=== PATIENT | male | born 1950 | race African-American/Black ===

== ENCOUNTER 2018-11-04 04:54 | Emergency (ER) | payer MEDICARE, BC ==
[2018-11-04 05:04] VITALS: BP 170/92
--- NOTE | 2018-11-04 05:49 | ER Document Report ---
ED Medical Screen (RME) - General Chief Complaint: Constipation Stated Complaint: CONSTIPATION Time Seen by Provider: 11/04/18 05:45 Notes: Patient is a 68-year-old male who presents the emergency department with a chief complaint of constipation and groin pain. He also has abdominal pain. His last bowel movement was yesterday, but he states that he had a hard time passing a stool. He has been using a colon cleanser for the past 3 days, but has had no results. He states that he has been having this pain on and off since the middle of October. He states that he only had one bowel movement from October 14-. Ever since then he has not been able to have a normal bowel movement. He has history of a small bowel obstruction from 2013, and was admitted here in the hospital. He was placed on a liquid diet at that time and his small bowel obstruction was resolved. He had a follow-up colonoscopy and at that time in 2013, was normal. TRAVEL OUTSIDE OF THE [place] IN LAST 30 DAYS: No - Related Data Allergies/Adverse Reactions: No Known Allergies Allergy (Unverified 02/12/11 21:05) Past Medical History - Past Medical History Cardiac Medical History: Reports: Hx Hypercholesterolemia Denies: Hx Coronary Artery Disease, Hx Heart Attack, Hx Hypertension Pulmonary Medical History: Denies: Hx Asthma, Hx Bronchitis, Hx COPD, Hx Pneumonia Neurological Medical History: Denies: Hx Cerebrovascular Accident, Hx Seizures Renal/ Medical History: Denies: Hx Peritoneal Dialysis Malignancy Medical History: Reports Hx Prostate Cancer GI Medical History: Reports: Hx Gastroesophageal Reflux Disease Musculoskeltal Medical History: Reports Hx Arthritis - generalized Psychiatric Medical History: Reports: Hx Depression Past Surgical History: Reports: Hx Orthopedic Surgery - spinal 2010 - Immunizations Hx Diphtheria, Pertussis, Tetanus Vaccination: Yes Physical Exam - Vital signs Vitals: Temp Pulse Resp BP Pulse Ox 97.5 F 59 L 16 170/92 H 97 11/04/18 05:03 11/04/18 05:03 11/04/18 05:03 11/04/18 05:03 11/04/18 05:03 - Abdominal Inspection: Normal Tenderness: Tender - Generalized Course - Vital Signs Vital signs: Temp Pulse Resp BP Pulse Ox 97.5 F 59 L 16 170/92 H 97 11/04/18 05:03 11/04/18 05:03 11/04/18 05:03 11/04/18 05:03 11/04/18 05:03
[2018-11-04 06:10] LABS: ABSOLUTE EOSINOPHILS # (AUTO) 0.1 10^3/uL (0.0-0.6); ABSOLUTE LYMPHOCYTES (AUTO) 1.2 10^3/uL (0.5-4.7); ABSOLUTE MONOCYTES (AUTO) 0.6 10^3/uL (0.1-1.4); ABSOLUTE NEUT (AUTO) 2.7 10^3/uL (1.7-8.2); BASOPHILS % (AUTO) 0.6 % (0-2); EOSINOPHILS % (AUTO) 1.7 % (0-6); HEMATOCRIT 40.3 % (37.9-51.0); HEMOGLOBIN 13.9 g/dL (13.5-17.0); LYMPHOCYTES % (AUTO) 26.5 % (13-45); MEAN CORPUSCULAR HEMOGLOBIN 31.4 pg (27.0-33.4); MEAN CORPUSCULAR HGB CONC 34.6 g/dL (32.0-36.0); MEAN CORPUSCULAR VOLUME 91 fl (80-97); MONOCYTES % (AUTO) 12.9 % (3-13); PLATELET COUNT 235 10^3/uL (150-450); RED BLOOD COUNT 4.43 10^6/uL (4.35-5.55); RED CELL DISTRIBUTION WIDTH 14.4 % (11.5-14.0); SEGMENTED NEUTROPHILS % (AUTO) 58.3 % (42-78); TOTAL CELLS COUNTED % (AUTO) 100 %; WHITE BLOOD COUNT 4.6 10^3/uL (4.0-10.5)
[2018-11-04 06:16] LABS: BLOOD UREA NITROGEN 18 mg/dL (7-20); CALCIUM 9.2 mg/dL (8.4-10.2); CARBON DIOXIDE 25 mmol/L (22-30); CHLORIDE 102 mmol/L (98-107); GLUCOSE 103 mg/dL (75-110); POTASSIUM 3.9 mmol/L (3.6-5.0); SODIUM 137.2 mmol/L (137-145)
[2018-11-04 06:17] LABS: ALANINE AMINOTRANSFERASE 41 U/L (21-72); ALBUMIN 3.8 g/dL (3.5-5.0); ALKALINE PHOSPHATASE 76 U/L (38-126); ANION GAP 10 (5-19); ASPARTATE AMINO TRANSFERASE 35 U/L (17-59); BILIRUBIN,DIRECT 0.2 mg/dL (0.0-0.4); BILIRUBIN,TOTAL 0.3 mg/dL (0.2-1.3); TOTAL PROTEIN 6.1 g/dL (6.3-8.2)
[2018-11-04] MEDS ORDERED: NORMAL SALINE 500 ML IV ONE (06:34)
[2018-11-04 07:19] LABS: APPEARANCE,URINE CLEAR; BILIRUBIN,URINE NEGATIVE (NEGATIVE); COLOR,URINE COLORLESS; GLUCOSE, URINE NEGATIVE (NEGATIVE); KETONES,URINE NEGATIVE (NEGATIVE); LEUKOCYTE ESTERASE,URINE NEGATIVE (NEGATIVE); NITRITE,URINE NEGATIVE (NEGATIVE); PROTEIN,URINE NEGATIVE (NEGATIVE); URINE SPECIFIC GRAVITY 1.003; UROBILINOGEN,URINE NEGATIVE mg/dL (<2.0)
--- NOTE | 2018-11-04 08:36 | RADIOLOGY REPORT (SQ) ---
EXAM DESCRIPTION: CT ABD/PELVIS WITH IV ORAL COMPLETED DATE/TIME: 11/04/2018 8:16 am REASON FOR STUDY: abdominal pain; constipation COMPARISON: 06/30/2015 TECHNIQUE: CT scan of the abdomen and pelvis performed using helical scanning technique with dynamic intravenous contrast injection. No oral contrast. Images reviewed with lung, soft tissue, and bone windows. Reconstructed coronal and sagittal MPR images reviewed. Delayed images for evaluation of the urinary system also acquired. All images stored on PACS. All CT scanners at this facility use dose modulation, iterative reconstruction, and/or weight based d osing when appropriate to reduce radiation dose to as low as reasonably achievable (ALARA). [facility]: Dose Right [facility]: CareDose [facility]: Dose Right [facility]: Teradose 4D [facility]: [employer] Software CONTRAST TYPE AND DOSE: contrast/concentration: Isovue 350.00 mg/ml; Total Contrast Delivered: 100.0 ml; Total Saline Delivered: 72.0 ml 100 cc Omnipaque 350 RENAL FUNCTION: BUN 18, creatinine 1.08 RADIATION DOSE: CT Rad equipment meets quality standard of care and radiation dose reduction techniq ues were employed. CTDIvol: 9.6 - 13.6 mGy. DLP: 1273 mGy-cm.. LIMITATIONS: None. FINDINGS: LOWER CHEST: No significant findings. No nodules or infiltrates. LIVER: There is a 1.8 cm hepatic dome lesion demonstrating peripheral nodular discontinuous enhanceme nt with centripetal filling most compatible with a hemangioma. Remaining liver parenchyma is unremar kable. No intrahepatic ductal dilation. SPLEEN: Normal size. No focal lesions. PANCREAS: No masses. No significant calcifications. No adjacent inflammation or peripancreatic fluid collections. Pancreatic duct not dilated. GALLBLADDER: No identified stones by CT criteria. No inflammatory changes to suggest cholecystitis. ADRENAL GLANDS: Nodular adrenal gland thickening without discrete mass. RIGHT KIDNEY AND URETER: No solid masses. No significant calcifications. No hydronephrosis or hyd roureter. LEFT KIDNEY AND URETER: No solid masses. No significant calcifications. No hydronephrosis or hydr oureter. AORTA AND VESSELS: Scattered aortoiliac atherosclerosis. No aneurysm. 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 RETROPERITONEUM: No retroperitoneal adenopathy, hemorrhage or masses. BOWEL AND PERITONEAL CAVITY: No evidence of intestinal obstruction. No focal bowel wall thickening. APPENDIX: Normal. PELVIS: Status post prostatectomy. Unremarkable urinary bladder. ABDOMINAL WALL: Intramuscular lipoma within the right lateral abdominal wall musculature measuring 5 cm maximally. BONES: Stable benign-appearing lytic lesion within the left ilium with narrow zone of transition comp ared to exam dated 06/27/2015 OTHER: No other significant finding. IMPRESSION: 1. No definite acute intra-abdominal/pelvic process. 2. Stable 1.8 cm hepatic dome lesion most compatible with hemangioma. 3. 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 4. No evidence of intestinal obstruction. Unremarkable fecal burden. TECHNICAL DOCUMENTATION: JOB ID: [id number] Quality ID # [id number]: Final reports with documentation of one or more dose reduction techniques (e.g., Au tomated exposure control, adjustment of the mA and/or kV according to patient size, use of iterative reconstruction technique) 2010 [employer]- All Rights Reserved Reading location - IP/workstation name: [email or web address]
--- NOTE | 2018-11-04 09:34 | ER Document Report ---
ED General - General Chief Complaint: Constipation Stated Complaint: CONSTIPATION Time Seen by Provider: 11/04/18 05:45 TRAVEL OUTSIDE OF THE U.S[place] IN LAST 30 DAYS: No - HPI Patient complains to provider of: Constipation abdominal pain Notes: Patient coming in for evaluation of constipation abdominal pain. Patient has abdominal pain mid abdomen going to bilateral groins. Patient states ongoing ever since Ayaka soria. Patient states similar to when he had constipation issues in the past. Patient was evaluated by our triage provider whose note is provided below Patient is a 68-year-old male who presents the emergency department with a chief complaint of constipation and groin pain. He also has abdominal pain. His last bowel movement was yesterday, but he states that he had a hard time passing a stool. He has been using a colon cleanser for the past 3 days, but has had no results. He states that he has been having this pain on and off since the middle of October. He states that he only had one bowel movement from October 14-. Ever since then he has not been able to have a normal bowel movement. He has history of a small bowel obstruction from 2013, and was admitted here in the hospital. He was placed on a liquid diet at that time and his small bowel obstruction was resolved. He had a follow-up colonoscopy and at that time in 2013, was normal. Patient upon my evaluation is resting comfortably no signs of any obvious distress. - Related Data Allergies/Adverse Reactions: No Known Allergies Allergy (Unverified 02/12/11 21:05) Past Medical History - Social History Smoking Status: Never Smoker Family History: None Patient has suicidal ideation: No Patient has homicidal ideation: No - Past Medical History Cardiac Medical History: Reports: Hx Hypercholesterolemia Denies: Hx Coronary Artery Disease, Hx Heart Attack, Hx Hypertension Pulmonary Medical History: Denies: Hx Asthma, Hx Bronchitis, Hx COPD, Hx Pneumonia Neurological Medical History: Denies: Hx Cerebrovascular Accident, Hx Seizures Renal/ Medical History: Denies: Hx Peritoneal Dialysis Malignancy Medical History: Reports Hx Prostate Cancer GI Medical History: Reports: Hx Gastroesophageal Reflux Disease Musculoskeletal Medical History: Reports Hx Arthritis - generalized Psychiatric Medical History: Reports: Hx Depression Past Surgical History: Reports: Hx Orthopedic Surgery - spinal 2010 - Immunizations Hx Diphtheria, Pertussis, Tetanus Vaccination: Yes Hx Pneumococcal Vaccination: 11/01/13 Review of Systems - Review of Systems Constitutional: No symptoms reported EENT: No symptoms reported Cardiovascular: No symptoms reported Respiratory: No symptoms reported Gastrointestinal: Abdominal pain, Constipation Genitourinary: No symptoms reported Male Genitourinary: No symptoms reported Musculoskeletal: No symptoms reported Skin: No symptoms reported Hematologic/Lymphatic: No symptoms reported Neurological/Psychological: No symptoms reported -: Yes All other systems reviewed and negative Physical Exam - Vital signs Vitals: Temp Pulse Resp BP Pulse Ox 97.5 F 59 L 16 170/92 H 97 11/04/18 05:03 11/04/18 05:03 11/04/18 05:03 11/04/18 05:03 11/04/18 05:03 Interpretation: Normal - General General appearance: Appears well, Alert - HEENT Head: Normocephalic, Atraumatic Eyes: Normal Pupils: PERRL - Respiratory Respiratory status: No respiratory distress Chest status: Nontender Breath sounds: Normal Chest palpation: Normal - Cardiovascular Rhythm: Regular Heart sounds: Normal auscultation Murmur: No - Abdominal Inspection: Normal Distension: No distension Bowel sounds: Normal Tenderness: Nontender Organomegaly: No organomegaly - Back Back: Normal, Nontender - Extremities General upper extremity: Normal inspection, Nontender, Normal color, Normal ROM, Normal temperature General lower extremity: Normal inspection, Nontender, Normal color, Normal ROM, Normal temperature, Normal weight bearing. 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 I did contact the ra diologist that read the CT scan stating that this was present and a CAT scan of the abdomen in 2015 that is very small and slight however that there is no changes today from the CAT scan in 2015. Patient states no one has told him of this diagnosis in the past. I was able to pass the images along to the cardiothoracic vascular surgeons at [facility] and was able to speak with them on the phone. States that the flap was present 2014 and does look to be stable at this time no surgical or emergent treatment required recommended to follow in approximate 6 months to a year with vascular team patient was given Dr. Mckeon vascular surgeon at [facility]. To follow-up with Patient otherwise has had multiple bowel movements while here in the ER. We will give Bentyl for his abdominal pain. No critical pathology seen on his evaluation. Recommend stool softeners to help relieve his constipation. Patient was discharged home. - Vital Signs Vital signs: Temp Pulse Resp BP Pulse Ox 97.5 F 59 L 16 170/92 H 97 11/04/18 05:03 11/04/18 05:03 11/04/18 05:03 11/04/18 05:03 11/04/18 05:03 - Laboratory Result Diagrams: 11/04/18 05:50 11/04/18 05:50 Laboratory results interpreted by me: 11/04/18 11/04/18 05:50 05:50 RDW 14.4 H Total Protein 6.1 L Discharge - Discharge Clinical Impression: Aortic flap at the SMA Abdominal pain Qualifiers: Abdominal location: generalized Qualified Code(s): R10.84 - Generalized abdominal pain Condition: Good Disposition: HOME, SELF-CARE Instructions: Abdominal Pain ([facility]), Constipation ([facility]) Additional Instructions: Your CAT scan showed a small aortic flap that was also demonstrated on a CT scan in 2014. I discussed his case with the cardiothoracic vascular surgery team at [facility]. They were able to look at your CT scan from today and from 2014 showing no change. The recommendation at this time is for continued surveillance follow-up with a vascular surgeon in approximately 6 months to 1 year. You may follow-up with your primary care physician for referral to a vascular surgeon he may follow-up with Dr. Mckeon vascular surgeon non destructive testing technician for [facility]. Your CAT scan does show a mild amount of stool throughout the colon however no signs of a small bowel obstruction I would recommend she follow-up with your primary care physician recommend taking a stool softener I would recommend returning to the ER if your symptoms worsen we will give you medication called Bentyl for your pain. Dr. Bruno Mckeon MD Doctor in [place], [place] Address: [address] [place] [address], [place] [address] Prescriptions: Dicyclomine HCl [Bentyl 20 mg Tablet] 20 mg PO QID #30 tablet Ondansetron [Zofran Odt 4 mg Tablet] 1 - 2 tab PO Q4H PRN #15 tab.rapdis PRN Reason: For Nausea/Vomiting Forms: Return to Work
[2018-11-04] MEDS ORDERED: DICYCLOMINE HCL 20 MG TABLET PO ONE (12:07)
== END 2018-11-04 12:31 | disposition home or self-care (01) ==
LOC: ER 04:54
DX: I71.02 Dissection of abdominal aorta (principal); K59.00 Constipation, unspecified; R10.84 Generalized abdominal pain; Z87.19 Personal history of other diseases of the digestive system; Z85.46 Personal history of malignant neoplasm of prostate
CPT/HCPCS: 99284; 96360; 36415; 85025; 80053; 81001; 74177; A9270; J7040; J3490

== ENCOUNTER → 2019-10-31 | Outpatient (CLI) | payer OTHER ==
--- NOTE | 2019-10-31 13:17 | RADIOLOGY REPORT (SQ) ---
EXAM DESCRIPTION: MRI LUMBAR SPINE WITHOUT COMPLETED DATE/TIME: 10/31/2019 1:01 pm REASON FOR STUDY: M25.551 PAIN IN RIGHT HIP, M54.5 LOW BACK PAIN M25.551 PAIN IN RIGHT HIP M54.5 L OW BACK PAIN COMPARISON: 11/04/2018 CT TECHNIQUE: Sagittal and Axial imaging includes T1, T2, STIR and gradient echo sequences. Coronal T2/ HASTE imaging. LIMITATIONS: None. FINDINGS: VISUALIZED UPPER ABDOMEN: Limited evaluation. No acute or suspicious findings suggested. SEGMENTATION: No transitional anatomy. The lowest well-developed disc space is labeled L5-S1. ALIGNMENT: Straightening of the normal lumbar lordosis, stable. VERTEBRAE: Intact. BONE MARROW: Normal. No marrow replacement or reactive changes. DISC SIGNAL: There is disc desiccation from L2-S1. POSTERIOR ELEMENTS: Generally intact. No pars defect evident. HARDWARE: None in the spine. CORD AND CONUS: Normal in size and signal intensity. Conus terminates at T12-L1. SOFT TISSUES: No aortic aneurysm seen. No bulky retroperitoneal adenopathy or mass. No paraspinal mas s or fluid. L1-L2: No significant spinal stenosis or exit foraminal stenosis. L2-L3: Small circumferential disc bulge causing mild effacement of the spinal canal and lateral reces ses bilaterally. No high-grade spinal canal stenosis. Mild bilateral neural foraminal narrowing. L3-L4: Broad-based circumferential disc bulge and ligamentum flavum hypertrophy causing moderate to s evere spinal canal stenosis. There is narrowing of the lateral recesses with contact of the traversi ng nerve roots. There is moderate bilateral neural foraminal narrowing L4-L5: Large circumferential disc bulging with facet and ligamentum flavum hypertrophy resulting in s evere spinal canal stenosis and effacement of the CSF column entirely. There is contact of the trave rsing nerve roots. Moderate left and moderate to severe right neural foraminal narrowing secondary t o disc and facet disease. L5-S1: Small posterior disc without significant spinal canal stenosis. Mild bilateral neural foramin al narrowing secondary to disc facet disease. LOWER THORACIC: Incompletely imaged. No stenosis seen. SACRUM: Visualized upper sacrum intact. OTHER: No other significant findings. IMPRESSION: 1. No evidence of acute bony abnormality of the lumbar spine. 2. Multilevel degenerative changes within the lumbar spine. Most significant changes at the level o f L4-5 with large posterior disc and facet hypertrophy resulting in severe spinal canal stenosis and moderate to severe bilateral neural foraminal narrowing. 3. Additional level specific findings as above. TECHNICAL DOCUMENTATION: JOB ID: [id number] [employer]- All Rights Reserved Reading location - IP/workstation name: [email or web address]
== END ==
LOC: RAD 11:56
PROVIDERS: ATTEND Physician Assistant Medical
DX: M25.551 Pain in right hip (principal); M54.5 Low back pain; M51.86 Other intervertebral disc disorders, lumbar region
CPT/HCPCS: 72148

== ENCOUNTER 2020-04-09 11:16 | Emergency (ER) | payer OTHER, MEDICARE ==
[2020-04-09 12:39] LABS: ABSOLUTE LYMPHOCYTES (AUTO) 1.3 10^3/uL (0.5-4.7); ABSOLUTE MONOCYTES (AUTO) 0.8 10^3/uL (0.1-1.4); ABSOLUTE NEUT (AUTO) 5.1 10^3/uL (1.7-8.2); BASOPHILS % (AUTO) 0.4 % (0-2); EOSINOPHILS % (AUTO) 0.6 % (0-6); HEMATOCRIT 43.8 % (37.9-51.0); HEMOGLOBIN 15.1 g/dL (13.5-17.0); LYMPHOCYTES % (AUTO) 17.7 % (13-45); MEAN CORPUSCULAR HEMOGLOBIN 31.5 pg (27.0-33.4); MEAN CORPUSCULAR HGB CONC 34.5 g/dL (32.0-36.0); MEAN CORPUSCULAR VOLUME 92 fl (80-97); MONOCYTES % (AUTO) 11.3 % (3-13); PLATELET COUNT 336 10^3/uL (150-450); RED BLOOD COUNT 4.79 10^6/uL (4.35-5.55); RED CELL DISTRIBUTION WIDTH 14.5 % (11.5-14.0); TOTAL CELLS COUNTED % (AUTO) 100 %; WHITE BLOOD COUNT 7.3 10^3/uL (4.0-10.5)
[2020-04-09 12:59] LABS: ALBUMIN 4.4 g/dL (3.5-5.0); ALKALINE PHOSPHATASE 70 U/L (38-126); ANION GAP 7 (5-19); ASPARTATE AMINO TRANSFERASE 45 U/L (17-59); BILIRUBIN,TOTAL 0.4 mg/dL (0.2-1.3); BLOOD UREA NITROGEN 19 mg/dL (7-20); CALCIUM 10.2 mg/dL (8.4-10.2); CARBON DIOXIDE 26 mmol/L (22-30); CHLORIDE 103 mmol/L (98-107); GLUCOSE 92 mg/dL (75-110); POTASSIUM 4.5 mmol/L (3.6-5.0); TOTAL PROTEIN 7.3 g/dL (6.3-8.2)
--- NOTE | 2020-04-09 13:05 | ER Document Report ---
ED General - General Chief Complaint: Leg Swelling Stated Complaint: LEFT LEG/HI PAIN, SWELLING Time Seen by Provider: 04/09/20 12:24 Primary Care Provider: MARY STEPHENS PA [NO LOCAL MD] - Follow up as needed Mode of Arrival: Ambulatory Information source: Patient TRAVEL OUTSIDE OF THE [place] IN LAST 30 DAYS: No - HPI Onset: Other - since his back surgery on April 03 Onset/Duration: Gradual Quality of pain: Achy Severity: Moderate Pain Level: 3 Associated symptoms: None Exacerbated by: Walking, Other - weight bearing Relieved by: Denies Similar symptoms previously: No Recently seen / treated by doctor: No Notes: 69 year old male with a history of Recent Lumbar Spine Surgery on April 03, HLD, GERD, Arthritis, Prostate Cancer, Depression here in the ER for pain in his low back which radiates down his left leg. The patient says he called his Orthopedic Surgeon and he was told to come to an ER to be evaluated for a DVT. The patient denies redness or swelling of his left leg since the surgery. The patient is also complaining of a scratchy throat (he is unsure if he was intubated or not) and left sided chest pain since his surgery. The patient denies fevers, chills, sweats, nausea, vomiting, trouble breathing, shortness of breath. - Related Data Allergies/Adverse Reactions: No Known Allergies Allergy (Unverified 02/12/11 21:05) Past Medical History - General Information source: Patient - Social History Smoking Status: Current Every Day Smoker Chew tobacco use (# tins/day): No Frequency of alcohol use: None Drug Abuse: None Family History: None Patient has suicidal ideation: No Patient has homicidal ideation: No - Past Medical History Cardiac Medical History: Reports: Hx Hypercholesterolemia Denies: Hx Coronary Artery Disease, Hx Heart Attack, Hx Hypertension Pulmonary Medical History: Denies: Hx Asthma, Hx Bronchitis, Hx COPD, Hx Pneumonia Neurological Medical History: Denies: Hx Cerebrovascular Accident, Hx Seizures Renal/ Medical History: Denies: Hx Peritoneal Dialysis Malignancy Medical History: Reports Hx Prostate Cancer GI Medical History: Reports: Hx Gastroesophageal Reflux Disease Musculoskeletal Medical History: Reports Hx Arthritis - generalized Psychiatric Medical History: Reports: Hx Depression Past Surgical History: Reports: Hx Orthopedic Surgery - spinal 2010 - Immunizations Hx Diphtheria, Pertussis, Tetanus Vaccination: Yes Hx Pneumococcal Vaccination: 11/01/13 Review of Systems - Review of Systems Constitutional: No symptoms reported EENT: Throat pain Cardiovascular: Chest pain - left sided chest wall Respiratory: No symptoms reported Gastrointestinal: No symptoms reported Genitourinary: No symptoms reported Male Genitourinary: No symptoms reported Musculoskeletal: Other - left low back pain which radiates down the back of his left leg Skin: No symptoms reported Hematologic/Lymphatic: No symptoms reported Neurological/Psychological: Other - numbness in his left low back which radiates down his left leg -: Yes All other systems reviewed and negative Physical Exam - Vital signs Vitals: Temp Pulse Resp BP Pulse Ox 97.7 F 101 H 16 154/86 H 96 04/09/20 11:20 04/09/20 11:20 04/09/20 11:20 04/09/20 11:20 04/09/20 11:20 - Notes Notes: GENERAL: Well-appearing, well-nourished and in no acute distress. HEAD: Atraumatic, normocephalic. EYES: Pupils equal round and reactive to light, extraocular movements intact, sclera anicteric, conjunctiva are normal. ENT: External ears normal, nares patent, oropharynx clear without exudates. [address] mucous membranes. NECK: Normal range of motion, supple without lymphadenopathy or JVD. LUNGS: Breath sounds clear to auscultation bilaterally and equal. No wheezes rales or rhonchi. HEART: Regular rate and rhythm without murmurs, rubs or gallops. ABDOMEN: Soft, nontender, normoactive bowel sounds. No guarding, no rebound. No masses appreciated. EXTREMITIES: Normal range of motion, no pitting or edema. No clubbing or cyanosis. No erythema or warmth of his left leg. No calf tenderness on left side. BACK: Well healing surgical incision with no erythema, warmth, drainage. Mild lumbar tenderness to palpation. Pain in left low back made worse with weight bearing on left leg, movement of left leg, and weight bearing of left leg. NEUROLOGICAL: Cranial nerves II through XII grossly intact. Normal speech, normal gait. PSYCH: Normal mood, normal affect. SKIN: Warm, Dry, normal turgor, no rashes or lesions noted. Course - Re-evaluation Re-evalutation: 04/09/20 14:44 The patient is here in the ER for back pain which radiates down his left leg along with some mild left sided chest pain (made worse with palpation). The patient was told to come the ER to be evaluated for a DVT. US shows no DVT and chest xray shows no acute process. Patient is safe for outpatient follow up with his Spine Surgeon. Patient told to use Tylenol and Motrin for pain along with a heating pad. - Vital Signs Vital signs: Temp Pulse Resp BP Pulse Ox 97.7 F 101 H 16 154/86 H 96 04/09/20 12:15 04/09/20 11:20 04/09/20 11:20 04/09/20 11:20 04/09/20 11:20 - Laboratory Result Diagrams: 04/09/20 12:30 04/09/20 12:30 Laboratory results interpreted by me: 04/09/20 04/09/20 12:30 12:30 RDW 14.5 H Sodium 136.3 L Lipase 646.5 H - Diagnostic Test Radiology reviewed: Image reviewed, Reports reviewed Discharge - Discharge Clinical Impression: Back pain Qualifiers: Back pain location: low back pain Chronicity: unspecified Back pain laterality: midline Sciatica presence: with sciatica Sciatica laterality: sciatica of left side Qualified Code(s): M54.42 - Lumbago with sciatica, left side Condition: Stable Disposition: HOME, SELF-CARE Instructions: Low Back Pain ([facility]), Sciatica ([facility]) Additional Instructions: USe Tylenol and Motrin for pain. Follow up with your Spine Surgeon as soon as possible and tell him/her about your ER visit. You had an ultrasound of your left leg showing no signs of a blood clot. You also had a chest xray which was normal in appearance. Referrals: MARY STEPHENS PA [NO LOCAL MD] - Follow up as needed
--- NOTE | 2020-04-09 14:17 | RADIOLOGY REPORT (SQ) ---
EXAM DESCRIPTION: CHEST 2 VIEWS IMAGES COMPLETED DATE/TIME: 04/09/2020 1:44 pm REASON FOR STUDY: eval for SOB and left sided chest pain COMPARISON: 06/28/2015 EXAM PARAMETERS: NUMBER OF VIEWS: two views TECHNIQUE: Digital Frontal and Lateral radiographic views of the chest acquired. RADIATION DOSE: NA LIMITATIONS: none FINDINGS: LUNGS AND PLEURA: No opacities, masses or pneumothorax. No pleural effusion. MEDIASTINUM AND HILAR STRUCTURES: No masses or contour abnormalities. HEART AND VASCULAR STRUCTURES: Heart normal size. No evidence for failure. BONES: No acute findings. HARDWARE: None in the chest. OTHER: No other significant finding. IMPRESSION: NO ACUTE RADIOGRAPHIC FINDING IN THE CHEST. TECHNICAL DOCUMENTATION: JOB ID: [id number] 2010 [employer]- All Rights Reserved Reading location - IP/workstation name: [email or web address]
[2020-04-09 15:09] VITALS: BP 139/90
--- NOTE | 2020-04-09 15:42 | RADIOLOGY REPORT (SQ) ---
EXAM DESCRIPTION: VENOUS UNILATERAL LOWER IMAGES COMPLETED DATE/TIME: 04/09/2020 3:24 pm REASON FOR STUDY: Pain swelling recent back surgery COMPARISON: None. TECHNIQUE: Dynamic and static tipton scale and color images acquired of the left leg venous system. Se lected spectral images acquired with additional compression and augmentation maneuvers. The contralat eral common femoral vein and saphenofemoral junction were also imaged. Images stored on PACS. LIMITATIONS: None. FINDINGS: COMMON FEMORAL: Normal phasicity, compression and augmentation. No visualized echogenic ma terial on tipton scale. No defects on color images. FEMORAL: Normal compression and augmentation. No visualized echogenic material on tipton scale. No defe cts on color images. POPLITEAL: Normal compression, augmentation. No visualized echogenic material on tipton scale. No defec ts on color images. CALF VESSELS: Normal compression, augmentation. No visualized echogenic material on tipton scale. No de fects on color images. GSV and SSV: Normal compression, augmentation. No visualized echogenic material on tipton scale. No def ects on color images. ANY DEEP VENOUS INSUFFICIENCY: Not evaluated. ANY EVIDENCE OF POPLITEAL CYST: No. OTHER: No other significant finding. CONTRALATERAL COMMON FEMORAL VEIN AND SAPHENOFEMORAL JUNCTION: Normal phasicity, compression and augmentation. No visualized echogenic material on tipton scale. No de fects on color images. IMPRESSION: NO EVIDENCE DVT OR SVT IN THE LEFT LEG. TECHNICAL DOCUMENTATION: JOB ID: [id number] 2010 [employer]- All Rights Reserved Reading location - IP/workstation name: [email or web address]
== END 2020-04-09 15:09 | disposition home or self-care (01) ==
LOC: ER 11:16
DX: M54.42 Lumbago with sciatica, left side (principal); R07.89 Other chest pain; R09.89 Other specified symptoms and signs involving the circulatory and respiratory systems; F17.200 Nicotine dependence, unspecified, uncomplicated; Z98.890 Other specified postprocedural states; Z85.46 Personal history of malignant neoplasm of prostate
CPT/HCPCS: 36415; 71046; 80053; 83690; 85025; 93971; 99284

== ENCOUNTER → 2020-04-18 | Outpatient (CLI) | payer OTHER ==
--- NOTE | 2020-04-18 15:53 | RADIOLOGY REPORT (SQ) ---
EXAM DESCRIPTION: MRI LUMBAR SPINE COMBO IMAGES COMPLETED DATE/TIME: 04/18/2020 3:22 pm REASON FOR STUDY: M54.16 RADICULOPATHY, LUMBAR REGION M54.16 RADICULOPATHY, LUMBAR REGION COMPARISON: 10/31/2019. TECHNIQUE: Sagittal and Axial imaging includes T1, T1 post gadolinium, T2, STIR and gradient echo se quences. Coronal T2/HASTE imaging. CONTRAST TYPE AND DOSE: 15 mL Prohance. RENAL FUNCTION: Not indicated. ACR Type II contrast agent associated with few, if any, unconfounded cases of NSF LIMITATIONS: None. FINDINGS: VISUALIZED UPPER ABDOMEN: Limited evaluation. No acute or suspicious findings suggested. SEGMENTATION: No transitional anatomy. The lowest well-developed disc space is labeled L5-S1. ALIGNMENT: Anatomic. VERTEBRAE: Intact. No fractures. BONE MARROW: Normal. No marrow replacement or reactive changes. DISC SIGNAL: Normal. No significant abnormal signal or loss of height. POSTERIOR ELEMENTS: Generally intact. No pars defect evident. HARDWARE: None in the spine. CORD AND CONUS: Normal in size and signal intensity. Conus at the appropriate level. SOFT TISSUES: No aortic aneurysm seen. No bulky retroperitoneal adenopathy or mass. No paraspinal mas s or fluid. L1-L2: No significant spinal stenosis or exit foraminal stenosis. L2-L3: Minimal diffuse disc bulge. Mild facet arthropathy. No significant spinal stenosis or exit f oraminal stenosis. L3-L4: Mild diffuse posterior disc bulge. Mild facet arthropathy. Mild to moderate spinal stenosis and mild exit foraminal stenosis. L4-L5: Right side laminectomy with enhancing postoperative soft tissue. Postoperative fluid collecti on in the surgical defect, posterior to the thecal sac, measuring 1 x 2 cm. There is enhancing soft tissue at the level of the disc, epidural space anterior to the thecal sac, with central irregular no nenhancing component. AP measurement is 8 mm, transverse measurement 12 mm, and craniocaudal measure ment 2.5 cm. This does result in spinal stenosis. L5-S1: No significant spinal stenosis or exit foraminal stenosis. LOWER THORACIC: Incompletely imaged. No stenosis seen. SACRUM: Visualized upper sacrum intact. ENHANCEMENT: No abnormal enhancement. OTHER: No other significant findings. IMPRESSION: 1. SURGICAL CHANGES AT L4-L5. ENHANCING SOFT TISSUE IN THE ANTERIOR EPIDURAL SPACE WITH CENTRAL NONE NHANCING COMPONENT IS CONCERNING FOR AN EPIDURAL ABSCESS. THIS DOES CAUSE SPINAL STENOSIS. THERE IS A POSTOPERATIVE FLUID COLLECTION IN THE RIGHT LAMINECTOMY DEFECT, PROBABLY POSTOPERATIVE SEROMA OR R ESOLVING HEMATOMA. POSTOPERATIVE SOFT TISSUE ABSCESS CANNOT BE EXCLUDED. 2. MILD DEGENERATIVE CHANGES AT THE OTHER LEVELS. COMMENT: Preliminary report was called by the technologist to the referring clinician's office at th e time of the exam. TECHNICAL DOCUMENTATION: JOB ID: [id number] 2010 [employer]- All Rights Reserved Reading location - IP/workstation name: [email or web address]
== END ==
LOC: RAD 13:33
PROVIDERS: ATTEND Physician Assistant
DX: M54.16 Radiculopathy, lumbar region (principal)
CPT/HCPCS: 72158; A9576

== ENCOUNTER → 2020-04-19 | Outpatient (CLI) | payer OTHER ==
[2020-04-19 10:43] LABS: ABSOLUTE EOSINOPHILS # (AUTO) 0.1 10^3/uL (0.0-0.6); ABSOLUTE LYMPHOCYTES (AUTO) 1.3 10^3/uL (0.5-4.7); ABSOLUTE MONOCYTES (AUTO) 0.4 10^3/uL (0.1-1.4); ABSOLUTE NEUT (AUTO) 2.2 10^3/uL (1.7-8.2); BASOPHILS % (AUTO) 0.5 % (0-2); EOSINOPHILS % (AUTO) 1.7 % (0-6); HEMATOCRIT 42.3 % (37.9-51.0); HEMOGLOBIN 14.5 g/dL (13.5-17.0); LYMPHOCYTES % (AUTO) 31.3 % (13-45); MEAN CORPUSCULAR HEMOGLOBIN 31.9 pg (27.0-33.4); MEAN CORPUSCULAR HGB CONC 34.2 g/dL (32.0-36.0); MEAN CORPUSCULAR VOLUME 93 fl (80-97); MONOCYTES % (AUTO) 10.8 % (3-13); PLATELET COUNT 311 10^3/uL (150-450); RED BLOOD COUNT 4.54 10^6/uL (4.35-5.55); RED CELL DISTRIBUTION WIDTH 14.7 % (11.5-14.0); SEGMENTED NEUTROPHILS % (AUTO) 55.7 % (42-78); TOTAL CELLS COUNTED % (AUTO) 100 %
[2020-04-19 11:25] LABS: ERYTHROCYTE SEDIMENTATION RATE 10 mm/hr (0-20)
== END ==
LOC: OD 09:19
PROVIDERS: ATTEND Physician Assistant
DX: G06.1 Intraspinal abscess and granuloma (principal)
CPT/HCPCS: 36415; 85025; 85652; 86140